=== PATIENT | female | born 1975 | race Caucasian/White ===

== ENCOUNTER 2019-01-23 11:26 | Observation (INO) ==
--- NOTE | 2019-01-23 11:29 | Emergency Department Note ---
Disposition Clinical Impression: Chest pain Qualifiers: Chest pain type: precordial pain Qualified Code(s): R07.2 - Precordial pain Disposition: Admitted As Inpatient Condition: Fair Chest Pain HPI - General Chief Complaint: ED Chest Pain Stated Complaint: chest pain Time Seen by Provider: 01/23/19 11:29 Source: patient, family Mode of arrival: private vehicle Limitations: no limitations Vital Signs Reviewed: Yes Nursing Notes Reviewed: Yes - History of Present Illness HPI Narrative: Patient states that she has been having twinges of pain in her left chest since yesterday. She states prior to arrival this has been more persistent and radiating to the left arm. She describes the discomfort about a 3 on a scale of 1-10. Nothing makes this pain better or worse and it has remained aching in character. She denies any abnormal cough but states she has a smoker's cough. She is not producing any phlegm nor having fevers or chills. She denies any diaphoresis, nausea or shortness of breath nor any dyspnea on exertion. She has had a feeling of generalized fatigue for couple days. She denies any LOC shortly swelling, immobilization or injury. She denies abdominal pain or complaints. She denies any visible rash or swelling. She has had no recent change of activity or straining. Her last menstrual cycle was one week ago and normal. She does have a history of hypertension, smoking, elevated cholesterol, diabetes and mildly elevated BMI. Her father did have coronary artery bypass graft at age 50. She does not have history of DVT, PE or known heart disease. She states she did have some chest pain about 15 years ago for which she was yas luated through a normal stress test. Pt complaint: chest pain Onset (ago): day(s) (1) Duration: intermittent, gradually worsening Onset: during rest Pain Location: left chest Severity: mild Severity scale (1-10): 3 Quality: aching Pain Radiation: LUE Improves with: nothing Worsens with: nothing Associated symptoms: Denies: nausea, vomiting, diaphoresis, dyspnea, syncope, palpitations, fever, cough, leg swelling Treatments prior to arrival chest pain: none - Related Data Home Medications Medication Instructions Recorded Confirmed Lisinopril [Zestril] 40 mg PO DAILY 06/21/16 01/23/19 Insulin Glargine [Lantus] 75 unit SQ HS 01/23/19 01/23/19 Insulin LISPRO [HumaLOG] 15 units SQ TIDWM 01/23/19 01/23/19 raNITIdine HCl [Zantac] 150 mg PO DAILY 01/23/19 01/23/19 Allergies Allergy/AdvReac Type Severity Reaction Status Date / Time No Known Allergies Allergy Verified 10/26/18 18:08 All systems ED: reviewed and negative except as stated. Chest Pain PMH - Past Medical History Medical history: Reports: diabetes, hyperlipidemia, hypertension. Denies: coronary artery disease, DVT, pulmonary embolus, thyroid disease Surgical history: Reports: no surgical history Psychiatric history: Reports: no psych history PRIVACY DIRECTOR history: Reports: no PRIVACY DIRECTOR history - Social History Smoking Status: Current every day smoker Alcohol use: Reports: occasionally Drug use: Reports: none Physical Exam - General Limitations: no limitations General appearance: alert, in no apparent distress - Head Head exam: atraumatic, normocephalic, normal inspection - Eye Eye exam: Present: normal appearance, PERRL, EOMI - ENT ENT exam: normal exam, normal oropharynx, mucous membranes moist - Neck Neck exam: Present: normal inspection, full ROM, trachea midline - Chest Chest inspection: Present: normal inspection, symmetric chest wall rise. Absent: tenderness - Respiratory Respiratory exam: Present: normal lung sounds bilaterally. Absent: respiratory distress, wheezes, prolonged expiratory phase - Cardiovascular Cardiovascular exam: Present: regular rate, normal rhythm, normal heart sounds. Absent: tachycardia - Abdominal Exam Abdominal exam: Present: soft, Non-Tender, normal bowel sounds. Absent: tenderness, distention, guarding, rebound, rigidity - Extremities Exam Extremities exam: Present: normal inspection, full ROM, normal capillary refill. Absent: tenderness, pedal edema, calf tenderness - Expanded Lower Extremity Exam Neurovascular/Tendon exam: Present: normal capillary refill. Absent: motor deficit, sensory deficit, tendon deficit Gait: observed and normal - Back Exam Back exam: Present: normal inspection, full ROM. Absent: tenderness - Neurological Exam Neurological exam: Present: alert, oriented X3 - Psychiatric Psychiatric exam: Present: normal affect, normal mood - Skin Skin exam: Present: warm, dry, intact, normal color. Absent: diaphoresis, pallor Course Course Narrative: All testing is been discussed with the patient and family. With her atypical pain, no clear etiology and multiple risk factors she and family still felt uncomfortable with regard to this pain. I discussed possible observation for serial troponins with Dr. Pimentel at 1305 and he has given verbal orders for her observation period she is awaiting inpatient bed placement at this time for further observation and testing. Vital Signs Temperature 98.7 F 01/23/19 11:32 Pulse Rate 77 01/23/19 11:32 Respiratory Rate 18 01/23/19 11:32 Blood Pressure 160/105 01/23/19 11:32 O2 Sat by Pulse Oximetry 94 01/23/19 11:32 Temperature 98.3 F 01/23/19 13:53 Pulse Rate 67 01/23/19 13:53 Respiratory Rate 16 01/23/19 13:53 Blood Pressure 135/91 01/23/19 13:53 O2 Sat by Pulse Oximetry 96 01/23/19 13:54 Oxygen Delivery Oxygen Delivery Room Air Chest Pain - Differential Diagnosis Likely: atypical chest pain, costalchondritis, chest pain - Medical Records Medical records reviewed: Yes I reviewed the patient's medical records. - Lab Data Lab results reviewed: Yes I reviewed the patient's lab results. Result diagrams: 01/23/19 11:45 01/23/19 11:45 Lab Results 01/23/19 01/23/19 01/23/19 Range/Units 11:45 11:45 11:45 WBC 10.6 (4.3-11.1) K/mcL RBC 5.22 H (3.82-4.97) M/mcL Hgb 16.2 H (11.5-15.4) g/dL Hct 48.2 H (35.3-44.9) % MCV 92.3 (83.0-100.0) fL MCH 31.0 (28.0-33.3) pg MCHC 33.6 (31.6-35.5) g/dL RDW 12.3 (11.5-14.5) % Plt Count 202 (140-400) K/mcL MPV 10.9 (9.4-12.4) fL Immature Gran % 0.5 (0-4) % Seg Neutrophils % 63.9 % Lymphocytes % 28.3 % Monocytes % 6.6 % Eosinophils % 0.0 % Basophils % 0.7 % Neutrophils # 6.8 (1.6-8.9) K/mcL Lymphocytes # 3.0 (0.6-4.6) K/mcL Monocytes # 0.7 (0.0-1.3) K/mcL Eosinophils # 0.0 (0.0-0.6) K/mcL Basophils # 0.1 (0.0-0.2) K/mcL PT 10.9 (9.4-12.1) Seconds INR 1.0 APTT 29.1 (26.0-36.0) Seconds D-Dimer 245 (0-500) ng/mLFEU Sodium 135 L (136-145) mEq/L Potassium 3.7 (3.5-5.1) mEq/L Chloride 100 (98-107) mEq/L Carbon Dioxide 29 (23-29) mEq/L BUN 10 (6-20) mg/dL Creatinine 0.58 L (0.60-1.20) mg/dL Est GFR ( Amer) > 60 (> 60) Est GFR (Non-Af Amer) > 60 (> 60) BUN/Creatinine Ratio 17 (6-26) Glucose 290 H (70-105) mg/dL Calculated Osmolality 290 (280-300) Calcium 9.0 (8.6-10.3) mg/dL Troponin I < 0.03 (< 0.04) ng/mL Serum , Qual (Negative) 01/23/19 Range/Units 11:45 WBC (4.3-11.1) K/mcL RBC (3.82-4.97) M/mcL Hgb (11.5-15.4) g/dL Hct (35.3-44.9) % MCV (83.0-100.0) fL MCH (28.0-33.3) pg MCHC (31.6-35.5) g/dL RDW (11.5-14.5) % Plt Count (140-400) K/mcL MPV (9.4-12.4) fL Immature Gran % (0-4) % Seg Neutrophils % % Lymphocytes % % Monocytes % % Eosinophils % % Basophils % % Neutrophils # (1.6-8.9) K/mcL Lymphocytes # (0.6-4.6) K/mcL Monocytes # (0.0-1.3) K/mcL Eosinophils # (0.0-0.6) K/mcL Basophils # (0.0-0.2) K/mcL PT (9.4-12.1) Seconds INR APTT (26.0-36.0) Seconds D-Dimer (0-500) ng/mLFEU Sodium (136-145) mEq/L Potassium (3.5-5.1) mEq/L Chloride (98-107) mEq/L Carbon Dioxide (23-29) mEq/L BUN (6-20) mg/dL Creatinine (0.60-1.20) mg/dL Est GFR ( Amer) (> 60) Est GFR (Non-Af Amer) (> 60) BUN/Creatinine Ratio (6-26) Glucose (70-105) mg/dL Calculated Osmolality (280-300) Calcium (8.6-10.3) mg/dL Troponin I (< 0.04) ng/mL Serum , Qual Negative (Negative) - Radiology Data Radiology results reviewed: Yes I reviewed the patient's radiology results. Single view chest x-ray is performed. This does not demonstrate evidence for infiltrate, effusion, pneumothorax, foreign body or heart failure. The cardiac silhouette is normal. I do not see abnormality to the osseous structures of the chest. This is on my interpretation. - EKG Data EKG attestation: Yes I reviewed and interpreted this EKG. EKG shows normal: sinus rhythm, axis, intervals, QRS complexes, ST-T waves Rate: normal (69) Interpretation: no acute changes, normal EKG Heart Score - Score History: Slightly Suspicious EKG: Normal Age: Less than 45 Risk Factors: Equal/Greater than 3 risk factor or history of atherosclerotic di sease Troponin: Less than normal limit HEART Score Total: 2
[2019-01-23] MEDS ORDERED: Aspirin 81 MG TAB.CHEW PO ONE (11:33)
[2019-01-23 11:51] LABS: Basophils # 0.1 K/mcL (0.0-0.2); Basophils % 0.7 %; Hematocrit 48.2 % (35.3-44.9); Hemoglobin 16.2 g/dL (11.5-15.4); Immature Granulocytes % 0.5 % (0-4); Lymphocytes % 28.3 %; Mean Corpuscular HGB Conc 33.6 g/dL (31.6-35.5); Mean Corpuscular Volume 92.3 fL (83.0-100.0); Mean Platelet Volume 10.9 fL (9.4-12.4); Monocytes # 0.7 K/mcL (0.0-1.3); Monocytes % 6.6 %; Neutrophils # 6.8 K/mcL (1.6-8.9); Platelet Count 202 K/mcL (140-400); Red Blood Count 5.22 M/mcL (3.82-4.97); Red Cell Distribution Width 12.3 % (11.5-14.5); Segmented Neutrophils % 63.9 %
[2019-01-23 11:58] LABS: Prothrombin Time 10.9 Seconds (9.4-12.1)
[2019-01-23 12:01] LABS: Activated Partial Thrombo Time 29.1 Seconds (26.0-36.0)
[2019-01-23 12:07] LABS: BUN/Creatinine Ratio 17 (6-26); Blood Urea Nitrogen 10 mg/dL (6-20); Carbon Dioxide 29 mEq/L (23-29); Chloride 100 mEq/L (98-107); Glucose 290 mg/dL (70-105); Osmolality,Calculated 290 (280-300); Potassium 3.7 mEq/L (3.5-5.1); Sodium 135 mEq/L (136-145); eGFR For Non-African Americans > 60 (> 60)
[2019-01-23 12:09] LABS: Troponin I < 0.03 ng/mL (< 0.04)
[2019-01-23] MEDS ORDERED: Acetaminophen 325 MG TABLET PO PRN (13:52)
[2019-01-23] MEDS ORDERED: *HR* Dextrose 50 % in Water (Vial) 50 ML VIAL IVP PRN (13:52)
[2019-01-23] MEDS ORDERED: Dextrose Gel 15 GM/37.5 ML TUBE PO PRN ×4 (13:52→20:01)
[2019-01-23] MEDS ORDERED: Mag Hydrox/Al Hydrox/Simeth 30 ML UDC PO PRN (13:52)
[2019-01-23] MEDS ORDERED: MOM Conc 10 ML UD.LIQ PO PRN (13:52)
[2019-01-23] MEDS ORDERED: Ondansetron ODT 4 MG TAB.RAPDIS SL PRN (13:52)
[2019-01-23] MEDS ORDERED: D5% in Water 1,000 ML IVC PRN ×2 (13:52→20:01)
[2019-01-23] MEDS ORDERED: Naloxone 0.4 MG/ML INJ IVP PRN (13:52)
[2019-01-23] MEDS ORDERED: Ibuprofen 400 MG TABLET PO PRN (13:52)
[2019-01-23] MEDS: Insulin LISPRO 300 UNITS/3 ML VIAL SQ SCH (17:08)
--- NOTE | 2019-01-23 18:07 | Internal Med History&Physical ---
Date of Encounter: 01/23/19 Time of Encounter: 17:30 Assessment and Plan (1) Chest pain Current visit: Yes Status: Acute Doubt myocardial ischemic pain from history and physical. Repeat cardiac enzymes were ordered through emergency room. Qualifiers: Chest pain type: precordial pain Qualified Code(s): R07.2 - Precordial pain (2) Hypertension Current visit: Yes Status: Chronic Continue lisinopril and monitor blood pressure. Qualifiers: Hypertension type: essential hypertension Qualified Code(s): I10 - Essential (primary) hypertension (3) Elevated hemoglobin Current visit: Yes Status: Acute Recheck CBC in a.m. Room air oximetry will be checked on 6 minute walk. (4) Hyperlipidemia Current visit: Yes Status: Acute Check lipid profile in a.m. Qualifiers: Hyperlipidemia type: unspecified Qualified Code(s): E78.5 - Hyperlipidemia, unspecified (5) DM type 2 (diabetes mellitus, type 2) Current visit: Yes Status: Acute Check hemoglobin A1c in a.m. Continue Lantus/Levemir and Accu-Cheks with SSI. Qualifiers: Diabetes mellitus alf insulin use: with medical terminologist use Diabetes mellitus complication status: without complication Qualified Code(s): E11.9 - Type 2 diabetes mellitus without complications; Z79.4 - jail (current) use of insulin (6) GERD (gastroesophageal reflux disease) Current visit: Yes Status: Chronic Continue scheduled Zantac. Qualifiers: Esophagitis presence: esophagitis presence not specified Qualified Code(s): K21.9 - Gastro-esophageal reflux disease without esophagitis Internal Medicine - H&P: HPI Chief complaint: Chest discomfort Admitted From: Emergency Dept Plans for Post Hospital Care: Home History of present illness: Ms. Guillory is a 43 year old female who came to emergency room stating she had gradual onset of discomfort in her upper left chest area afternoon of January 22 while at leisure. She describes the discomfort as a "pinching" sensation that would last 2-3 minutes and then resolve but would return after 5-10 minute interval. She reports this cycle continued for several hours until she went to bed. It was not severe and she did not seek medical attention. When she awakened date of admission she was initially pain-free. Approximately 0900 she developed a discomfort in her chest she describes as "ache" that was more lateral and radiate into her left arm and axillary area. It did not wax or wane. She did not take medication. When it did not resolve after 1-2 hours she came to emergency room. She was evaluated and admitted to [facility] floor for ongoing care needs. She states she had a similar pain to the "ache" approximately 10-15 years ago and had EST which was negative. She was eventually diagnosed with GERD and placed on PPI which was later changed to H2 lisbeth. She has history of hyperte nsion but denies SC heart failure DVT or pulmonary embolus. She does not get angina or anginal equivalents on exertional activity including push mowing her yard recently. She denies diaphoresis, dyspnea or leg edema. She states she is pain-free at this time. Past Med Surg Social Fam HX - Past Medical History Medical history: diabetes, hyperlipidemia, hypertension Psychiatric history: no psych history - Past Surgical History Surgical History: no surgical history - Social History Smoking Status: Current every day smoker Smokeless Tobacco Status: No Alcohol use: occasionally Drug use: none - Family History Mother Living Status: Age at : 53 Cause of : zinc poisioning copper def. Hx Family Cardiac Disorders: Yes (HTN, Heart stents) Hx Family Respiratory Disorders: Yes (COPD) Hx Family Cancer: No Hx Family GI Disorders: No Hx Family Genitourinary Disorders: No Hx Family Endocrine Disorder: Yes (DM, hypothyroidism) Hx Family Musculoskeletal Disorders: No Hx Family Neuromuscular Disorders: Yes (Neuropathy, beign brain tumor) Hx Family Neurologic Disorders: No Hx Family HEENT Disorders: Yes Hx Family Reproductive Disorders: No Hx Family Psychosocial Disorders: Yes (anxiety and depression) Hx Family Medical Disorders: No Internal Medicine - H&P: Meds Lisinopril [Zestril] 40 mg PO DAILY 06/21/16 [History] Insulin Glargine [Lantus] 75 unit SQ HS 01/23/19 [History] Insulin LISPRO [HumaLOG] 15 units SQ TIDWM 01/23/19 [History] raNITIdine HCl [Zantac] 150 mg PO DAILY 01/23/19 [History] Allergy/AdvReac Type Severity Reaction Status Date / Time No Known Allergies Allergy Verified 10/26/18 18:08 All Systems PM: A 10-system review of systems was performed and is negative for pertinent f indings except as documented above in the HPI. Review of systems: Gen.: She states her weight has been stable for several months Cardiovascular: As per history of present illness Respiratory: She has smoked since age 28 up to 2 packs per day. She denies chronic lung disease GI: She has GERD. She denies disorders of her liver gallbladder or exocrine pancreas : She has had a burning sensation in her right flank intermittently several times weekly onset approximate 2010. She reports numerous diagnostic tests have shown no diagnosis. She denies hematuria dysuria or kidney stones Neurologic: She denies large distribution strokes or seizures. Endocrine: She was diagnosed with DM 2 approximately 2006. She has hyperlipidemia but denies thyroid disease Hematology/oncology: She denies blood disorders cancers or anemia Psychiatric: She denies anxiety depression or other mental health issues [place] skeletal: She denies arthritis gout or other bone joint or muscle disorders. - Constitutional Vitals: Temp Pulse Resp BP Pulse Ox 98.3 F 67 16 135/91 96 01/23/19 13:53 01/23/19 13:53 01/23/19 13:53 01/23/19 13:53 01/23/19 13:54 Exam: Gen.: She is a well-developed obese female lying in bed who appears in no acute distress at present time HEENT: Head is atraumatic and normocephalic. Eyes: EOMI. There is no scleral icterus. Mouth: Mucosa is moist. Neck: Supple and nontender. There is no thyromegaly or adenopathy noted. Heart: Regular without murmurs gallops or ectopics Chest: She is nontender in her chest wall to palpation Abdomen: Soft and nontender. No masses or guarding are noted. Extremities: There is no cyanosis edema or clubbing noted. Dorsalis pedis and posterior tibial pulses are 1-2 over 2 bilaterally. Neurologic: Mental status: She is talkative and a good historian. Cranial nerves: Smile is symmetric. Forehead wrinkles bilaterally. Tongue protrudes midline. EOMI. Motor: There is no pronator drift. Cerebellar: Finger to nose is intact bilaterally. Skin: Warm and dry Internal Med - H&P Results - Labs CBC & Chem 7: 01/23/19 11:45 01/23/19 11:45 Labs: Short CBC 01/23/19 Range/Units 11:45 WBC 10.6 (4.3-11.1) K/mcL Hgb 16.2 H (11.5-15.4) g/dL Hct 48.2 H (35.3-44.9) % Plt Count 202 (140-400) K/mcL Neutrophils # 6.8 (1.6-8.9) K/mcL BMP 01/23/19 11:45 Sodium 135 L Potassium 3.7 Chloride 100 Carbon Dioxide 29 BUN 10 Creatinine 0.58 L Glucose 290 H Calcium 9.0 Cardiac Enzymes 01/23/19 Range/Units 11:45 Troponin I < 0.03 (< 0.04) ng/mL - Impressions ITS Impressions Chest X-Ray 01/23/19 11:33 IMPRESSION: 1. No active pulmonary disease. D/ / Nishant Walls MD / Nishant Walls MD Interpreting Provider: Nishant Walls MD
[2019-01-23] MEDS ORDERED: *HR* Dextrose 50 % in Water (Syg) 50 ML SYRINGE IVP PRN (20:01)
[2019-01-23] MEDS ORDERED: Insulin LISPRO 300 UNITS/3 ML VIAL SQ SCH (21:00)
[2019-01-24 06:24] LABS: Basophils # 0.1 K/mcL (0.0-0.2); Basophils % 0.7 %; Hematocrit 45.5 % (35.3-44.9); Hemoglobin 15.3 g/dL (11.5-15.4); Immature Granulocytes % 0.3 % (0-4); Lymphocytes # 3.3 K/mcL (0.6-4.6); Lymphocytes % 34.8 %; Mean Corpuscular HGB Conc 33.6 g/dL (31.6-35.5); Mean Corpuscular Hemoglobin 31.1 pg (28.0-33.3); Mean Corpuscular Volume 92.5 fL (83.0-100.0); Mean Platelet Volume 11.7 fL (9.4-12.4); Monocytes # 0.7 K/mcL (0.0-1.3); Monocytes % 7.1 %; Neutrophils # 5.3 K/mcL (1.6-8.9); Platelet Count 182 K/mcL (140-400); Red Blood Count 4.92 M/mcL (3.82-4.97); Red Cell Distribution Width 12.5 % (11.5-14.5); Segmented Neutrophils % 57.1 %
[2019-01-24 06:48] VITALS: BP 124/85
[2019-01-24] MEDS: Insulin LISPRO 300 UNITS/3 ML VIAL SQ SCH (08:42)
[2019-01-24] MEDS ORDERED: Famotidine 20 MG TABLET PO SCH (09:00)
[2019-01-24 09:19] LABS: Estimated Average Glucose 283 mg/dl; Hemoglobin A1C 11.5 %
--- NOTE | 2019-01-24 11:15 | Discharge Summary ---
Date of Encounter: 01/24/19 Time of Encounter: 10:30 - Discharge Diagnosis (1) Chest pain Priority: Primary Status: Resolved Qualifiers: Chest pain type: precordial pain Qualified Code(s): R07.2 - Precordial pain (2) Hypertension Priority: Secondary Status: Chronic Qualifiers: Hypertension type: essential hypertension Qualified Code(s): I10 - Essential (primary) hypertension (3) Elevated hemoglobin Priority: Secondary Status: Resolved (4) Hyperlipidemia Priority: Secondary Status: Chronic Qualifiers: Hyperlipidemia type: unspecified Qualified Code(s): E78.5 - Hyperlipidemia, unspecified (5) DM type 2 (diabetes mellitus, type 2) Priority: Secondary Status: Chronic Qualifiers: Diabetes mellitus fdc insulin use: with fdc use Diabetes mellitus complication status: without complication Qualified Code(s): E11.9 - Type 2 diabetes mellitus without complications; Z79.4 - oil heaterman (current) use of insulin (6) GERD (gastroesophageal reflux disease) Priority: Secondary Status: Chronic Qualifiers: Esophagitis presence: esophagitis presence not specified Qualified Code(s): K21.9 - Gastro-esophageal reflux disease without esophagitis Hospital course: Ms. Guillory is a 43 year old female who came to emergency room stating she had gradual onset of discomfort in her upper left chest area afternoon of January 22 while at leisure. She describes the discomfort as a "pinching" sensation that would last 2-3 minutes and then resolve but would return after 5-10 minute interval. She reports this cycle continued for several hours until she went to bed. It was not severe and she did not seek medical attention. When she awakened day of admission she was initially pain-free. Approximately 0900 she developed a discomfort in her chest she describes as "ache" that was more lateral and radiated into her left arm and axillary area. It did not wax or wane. She did not take medication. When it did not resolve after 1-2 hours she came to emergency room. She was evaluated and admitted to [facility] for ongoing care needs. Initial orders were written by the emergency room physician. I saw her on January 23 and performed the history and physical. Repeat cardiac enzymes showed no evidence of myocardial damage. When I saw her did not think the chest pain was myocardial ischemic origin. Etiology of the pain was not obvious. She was tejas n-free when I saw her on January 24 and wished to be discharged home which I felt was reasonable. Hemoglobin A1c returned significantly elevated at 11.5%. Her PCP can adjust diabetic medications. Lipid profile showed cholesterol 223, triglycerides 335, LDL 120, HDL 28, and total/HDL ratio of 8.0. Her PCP can order lipid lowering medication. Hemoglobin decreased to 15.3 on recheck 01/24/2019. Room air oximetry on 6 minute walk did not show need for supplemental oxygen. Her PCP can determine if a sleep study is needed. She will be discharged home and follow with her PCP Sophia Gallardo CNP within 1 week. - Time Spent with Patient Total time spent providing and/or coordinating discharge services: - Discharge Medications Prescriptions: Continue Lisinopril [Zestril] 40 mg PO DAILY Insulin LISPRO [HumaLOG] 15 units SQ TIDWM Insulin Glargine [Lantus] 75 unit SQ HS raNITIdine HCl [Zantac] 150 mg PO DAILY Home Medications: Lisinopril [Zestril] 40 mg PO DAILY 06/21/16 [History] Insulin Glargine [Lantus] 75 unit SQ HS 01/23/19 [History] Insulin LISPRO [HumaLOG] 15 units SQ TIDWM 01/23/19 [History] raNITIdine HCl [Zantac] 150 mg PO DAILY 01/23/19 [History] Allergies/Adverse Reactions: Allergy/AdvReac Type Severity Reaction Status Date / Time No Known Allergies Allergy Verified 10/26/18 18:08 Date of admission: 01/23/19 13:23 Primary care physician: Sophia Gallardo CNP - Constitutional Vitals: Temp Pulse Resp BP Pulse Ox 98.2 F 64 17 124/85 94 01/24/19 06:46 01/24/19 06:46 01/24/19 06:46 01/24/19 06:46 01/24/19 06:46 - Patient Status Disposition: Home, Self-Care Condition: Fair - Discharge Instructions Instructions: Chest Pain (DC), Chronic Hypertension (DC) Follow Up With: Sophia Gallardo CNP [Primary Care Provider] - 01/28/19 1:00 pm - Diet and Activity Activity: resume usual activities as tolerated Diet: diabetic diet
--- NOTE | 2019-01-24 23:16 | Electrocardiograph Report ---
[place] [id number] Test Date: 2019-01-23 Pat Name: Hoa Guillory Department: EDP-16 Room: [facility] Gender: F Paraffiner: : [id number] Requested By: Óscar Mock Order Number: [id number] Reading MD: Pio Iqbal Measurements Intervals [place] Rate: 69 P: 64 CA: 171 QRS: 26 QRSD: 98 T: 33 QT: 413 QTc: 443 Interpretive Statements Sinus rhythm Low voltage, precordial leads Electronically Signed On 01-24-2019 23:14:38 EDT by Pio Iqbal
== END 2019-01-24 11:33 | disposition home or self-care (01) ==
LOC: EMEROOPIK 11:26 → INPPIK 11:26
PROVIDERS: ADMIT Internal Medicine; ATTEND Internal Medicine